=== PATIENT | male | born 1940 | race Caucasian/White ===

== ENCOUNTER → 2017-01-20 | Outpatient (CLI) | payer MEDICARE, BC ==
[~2017-01-20] MED LIST: COZAAR50 MG PO; FLAX SEED OIL1000 MG PO; FOLIC ACID 40400 MCG PO; GARLIC OIL1000 MG PO; NEURONTIN300 MG PO; OMEGA-3 KRILL1 EAC1 PO; PRESERVISION A1 EACH PO; TENORMIN25 MG PO; VITAMIN B-121000 MCG PO; VITAMIN D1000 UNIT PO; [UNRECOGNIZED DRUG - OTHER] PO
== END | disposition disaster alternative care site (69) ==
LOC: GRAD 14:56
DX: M25.562 Pain in left knee (principal); M11.262 Other chondrocalcinosis, left knee; Z98.890 Other specified postprocedural states

== ENCOUNTER → 2017-07-02 | Outpatient (CLI) | payer MEDICARE, BC | LOC: GNJRC 11:00 | DX: Z01.818 Encounter for other preprocedural examination (principal); M17.12 Unilateral primary osteoarthritis, left knee ==